=== PATIENT | female | born 1985 | race Caucasian/White ===

== ENCOUNTER 2021-10-10 20:53 | Emergency (ER) | payer MEDICAID ==
[~2021-10-10] VITALS: Ht 172.7 cm; Wt 79.4 kg
[2021-10-10 20:53] VITALS: BP 129/70
== END 2021-10-11 01:49 | disposition left against medical advice (07) ==
LOC: ER 20:53
DX: M25.571 Pain in right ankle and joints of right foot (principal); Z53.21 Procedure and treatment not carried out due to patient leaving prior to being seen by health care provider
CPT/HCPCS: 81025

== ENCOUNTER 2023-10-28 12:32 | Emergency (ER) | payer MEDICAID ==
[~2023-10-28] VITALS: Ht 170.2 cm; Wt 77.2 kg
[2023-10-28 13:40] VITALS: BP 138/88; PULSE 65; RESP 18; O2SAT 98
[2023-10-28 14:29] LABS: Basophils # (auto) 0.1 10 ^3/uL (0-0.2); Eosinophils # (auto) 0 10 ^3/uL (0-0.8); Hemoglobin 9.2 g/dL (12.2-16.2); Mean Corpuscular Hemoglobin 21.6 pg (28.0-32.0); White Blood Cell 7.9 10^3/uL (4.4-10.8)
[2023-10-28 14:31] LABS: Basophils % (auto) 1.4 % (0.0-2.0); Eosinophils % (auto) 0.5 % (0.0-7.0); Hematocrit 30.4 % (36.0-46.0); Lymphocytes # (auto) 2.8 10 ^3/uL (0.4-5.4); Lymphocytes % (auto) 35.9 % (10.0-50.0); Mean Corpuscular Hgb Conc. 30.2 g/dL (32.0-36.0); Mean Corpuscular Volume 71.6 fL (80.0-100.0); Monocytes # (auto) 0.7 10 ^3/uL (0-1.3); Monocytes % (auto) 8.4 % (0.0-12.0); Neutrophils # (auto) 4.3 10 ^3/uL (1.6-8.6); Neutrophils % (auto) 53.8 % (37.0-80.0); Nucleated Red Blood Cells % 0.1 %; Red Blood Cells 4.24 10^6/uL (4.0-5.20); Red Cell Distribution Width 19.3 % (11.8-14.3)
[2023-10-28] MEDS ORDERED: MECL25CH85 PO (14:32)
[2023-10-28 14:43] LABS: Chloride 108 mmol/L (98-107); Potassium 3.9 mmol/L (3.5-5.1); Sodium 138 mmol/L (136-145)
[2023-10-28 14:44] LABS: Anion Gap 4 (5-15); Calcium 8.7 mg/dL (8.5-10.1); Carbon Dioxide 26 mmol/L (20-30)
[2023-10-28 14:49] LABS: BUN/Creatinine Ratio 15.1 (10.0-20.0); Blood Urea Nitrogen 11 mg/dL (9-23); Glucose 88 mg/dL (74-106)
== END 2023-10-28 18:56 | disposition left against medical advice (07) ==
LOC: ER 12:32
DX: R42 Dizziness and giddiness (principal); F15.90 Other stimulant use, unspecified, uncomplicated; Z98.890 Other specified postprocedural states; Z87.891 Personal history of nicotine dependence; Z88.8 Allergy status to other drugs, medicaments and biological substances; Z79.899 Other long term (current) drug therapy
CPT/HCPCS: 36415; 70450; 70486; 80048; 85025

== ENCOUNTER 2024-09-07 06:30 | Inpatient (IN) | payer MEDICAID ==
[~2024-09-07] VITALS: Ht 170.2 cm; Wt 79.5 kg
[~2024-09-07 06:30] MED LIST: MECL25CH85 PO
--- NOTE | 2024-09-07 07:54 | ED.PDOC ---
History of Present Illness HPI Comments 39 year old female presents to the ED with chief complaint of ETOH withdrawals. Patient reports that she believes she is experiencing ETOH withdrawals as she had stopped drinking after a 2 day binge, last drink had was around 8pm last night. Patient relays that she has drank 1 pint of ETOH every day for the past year. Patient states she is experiencing sweats, clammy hands, tremors, anxiety, and nausea. Patient denies any vomiting, dizziness, headache, chest pain, SOB, or fever. 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 all OIL PAINT SHADER Hx Family History Family History: Family hx of DM, Family hx of Cancer Social History Smoker: Non-Smoker Alcohol: Heavy Drugs: Marijuana Lives In: Home Constitutional: reports: sweats; denies: chills, diaphoresis, fatigue, fever, malaise, weakness, others EENTM: denies: blurred vision, double vision, ear bleeding, ear discharge, ear drainage, ear pain, ear ringing, eye pain, eye redness, hearing loss, mouth pain, mouth swelling, nasal discharge, nose bleeding, nose congestion, nose pain, photophobia, tearing, throat pain, throat swelling, voice changes, others Respiratory: denies: cough, hemoptysis, orthopnea, SOB at rest, shortness of breath, SOB with excertion, stridor, wheezing, others Cardiovascular: denies: chest pain, dizzy spells, diaphoresis, Dyspnea on exertion, edema, irregular heart beat, left arm pain, lightheadedness, palpitations, PND, syncope, others Gastrointestinal: reports: nausea; denies: abdomen distended, abdominal pain, blood streaked bowels, constipated, diarrhea, dysphagia, difficulty swallowing, hematemesis, melena, poor appetite, poor fluid intake, rectal bleeding, rectal pain, vomiting, others Genitourinary: denies: abnormal vagina bleeding, burning, dyspareunia, dysuria, flank pain, frequency, hematuria, incontinence, pain, , vagina discharge, urgency, others Neurological: reports: tremors; denies: dizziness, fainting, headache, left sided numbness, left sided weakness, numbness, paresthesia, pre-existing deficit, right sided numbness, right sided weakness, seizure, speech problems, tingling, weakness, others Musculoskeletal: denies: back pain, gout, joint pain, joint swelling, muscle pain, muscle stiffness, neck pain, others Integumetry: denies: bruises, change in color, change in hair/nails, dryness, laceration, lesions, lumps, rash, wounds, others Allergic/Immunocompromised: denies: Difficulty Healing, Frequent Infections, Hives, Itching, others Hematologic/Lymphatic: denies: anemia, blood clots, easy bleeding, easy bruising, swollen glands, others Endocrine: denies: excessive hunger, excessive sweating, excessive thirst, excessive urination, flushing, intolerance to cold, intolerance to heat, unexplained weight gain, unexplained weight loss, others Psychiatric: reports: anxiety; denies: bipolar disorder, depression, hopeless, panic disorder, schizophrenia, sleepless, suicidal, others All Other Systems: Reviewed and Negative Physical Exam General Appearance: No Apparent Distress, Other (Anxious appearing) HEENT: Normal ENT Inspection, PERRL/EOMI Neck: Full Range of Motion, Non-Tender, Normal, Normal Inspection Respiratory: Chest Non-Tender, Lungs Clear, No Accessory Muscle Use, No Respiratory Distress, Normal Breath Sounds Cardiovascular: No Edema, No JVD, No Murmur, No Gallop, Normal Peripheral Pulses, Regular Rate/Rhythm Breast Exam: Deferred Gastrointestinal: No Organomegaly, Non Tender, No Pulsatile Mass, Normal Bowel Sounds, Soft Genitalia: Deferred Pelvic: Deferred Rectal: Deferred Extremities: No calf tenderness, Normal capillary refill, Normal inspection, Normal range of motion, Non-tender, No pedal edema Musculoskeletal : Apperance: Normal Neurologic: Alert, detail maker and fitter II-XII nml as Tested, No Motor Deficits, Normal Affect, Normal Mood, No Sensory Deficits Cerebellar Function: Normal Reflexes: Normal Skin: Dry, Normal Color, Warm Lymphatic: No Adenopathy Was a procedure done? Was a procedure done?: No Differential Dx Considerations may include: Alcohol withdrawal X-Ray, Labs, Meds, VS Vital Signs Date Time Temp Pulse Resp B/P (MAP) Pulse Ox O2 Delivery O2 Flow Rate FiO2 09/07/24 08:56 98.5 97 21 128/90 (103) 98 98.5 09/07/24 06:54 98.4 106 24 157/94 (115) 99 Lab Test 09/07/24 08:00 Range/Units White Blood Count 8.2 4.4-10.8 10^3/uL Red Blood Count 4.41 4.0-5.20 10^6/uL Hemoglobin 10.2 L 12.2-16.2 g/dL Hematocrit 33.4 L 36.0-46.0 % Mean Corpuscular Volume 75.8 L 80.0-100.0 fL Mean Corpuscular Hemoglobin 23.2 L 28.0-32.0 pg Mean Corpuscular Hemoglobin Concent 30.6 L 32.0-36.0 g/dL Red Cell Distribution Width 18.8 H 11.8-14.3 % Platelet Count 313 140-450 10^3/uL Mean Platelet Volume 8.3 6.9-10.8 fL Neutrophils (%) (Auto) 76.6 37.0-80.0 % Lymphocytes (%) (Auto) 14.5 10.0-50.0 % Monocytes (%) (Auto) 8.5 0.0-12.0 % Eosinophils (%) (Auto) 0.1 0.0-7.0 % Basophils (%) (Auto) 0.3 0.0-2.0 % Neutrophils # (Auto) 6.3 1.6-8.6 10 ^3/uL Lymphocytes # (Auto) 1.2 0.4-5.4 10 ^3/uL Monocytes # (Auto) 0.7 0-1.3 10 ^3/uL Eosinophils # (Auto) 0 0-0.8 10 ^3/uL Basophils # (Auto) 0 0-0.2 10 ^3/uL Nucleated Red Blood Cells 0.1 % Sodium Level 141 136-145 mmol/L Potassium Level 3.7 3.5-5.1 mmol/L Chloride Level 106 98-107 mmol/L Carbon Dioxide Level 25 20-31 mmol/L Anion Gap 10 5-15 Blood Urea Nitrogen 6 L 9-23 mg/dL Creatinine 0.55 0.550-1.02 mg/dL Glomerular Filtration Rate Calc 120 >90 mL/min BUN/Creatinine Ratio 10.9 10.0-20.0 Serum Glucose 119 H 74-106 mg/dL Calcium Level 9.7 8.7-10.4 mg/dL Plasma/Serum Blood Alcohol Pending Current Medications Medications (Trade) Dose Ordered Sig/Javed Route Start Time Stop Time Status Last Admin Sodium Chloride 1,000 ml @ 1,000 mls/hr Q1H ONCE IV 09/07/24 07:45 09/07/24 08:44 DC 09/07/24 09:38 Ondansetron HCl (Zofran) 4 mg ONCE ONCE IV 09/07/24 07:45 09/07/24 07:46 DC 09/07/24 09:38 Pantoprazole Sodium (Protonix) 40 mg ONCE ONCE IV 09/07/24 07:45 09/07/24 07:46 DC 09/07/24 09:38 Lorazepam (Ativan Inj) 2 mg ONCE ONCE IV 09/07/24 07:45 09/07/24 07:46 DC 09/07/24 09:38 Chlordiazepoxide HCl (Librium Capsule) 50 mg ONCE ONCE PO 09/07/24 07:45 09/07/24 07:46 DC 09/07/24 09:46 Time of 1ST Reevaluation: 08:50 Reevaluation 1ST: Improved Patient Education/Counseling: Diagnosis, Treatment Family Education/Counseling: No Family Present Additional Information I reviewed the following notes from patient's past medical encounters: 10/28/23 for vertigo The following tests were ordered, and results were reviewed by me: UA, Blood ETOH, CBC, BMP I reviewed and agreed with the following test results read by other providers: None Additional Information was gathered from interviewing the following independent historians: None I discussed treatment and results with medical personnel. Departure 1 Departure Time of Disposition: 09:52 (Patient with a acute alcohol withdrawal. We will treat patient and admit for further workup) Impression: Primary Impression: Acute hyperactive alcohol withdrawal delirium Disposition: ADMITTED INPATIENT Admit to: Tele Condition: Guarded Critical Care Note Critical Care Time?: Yes Critical care comment: Acute alcohol withdrawal Authorized and Performed by: Ronaldo Crews MD Total critical care time: Approximately 38 minutes Due to a high probability of clinically significant, life threatening deterioration, the patient required my highest level of preparedness to intervene emergently and I personally spent this critical care time directly and personally managing the patient. This critical care time included obtaining a history; examining the patient; pulse oximetry; ordering and review of studies; arranging urgent treatment with development of a management plan; evaluation of patient's response to treatment; frequent reassessment; and, discussions with other providers. This critical care time was performed to assess and manage the high probability of imminent, life-threatening deterioration that could result in multi-organ failure. It was exclusive of separately billable procedures and treating other patients and teaching time. Please see my other sections and the rest of the note for further information on patient assessment and treatment. Stability Stability form required: No Heart Score Heart Score: Heart Score Response (Comments) Value History N/A 0 EKG N/A 0 Age N/A 0 Risk Factors N/A 0 Troponin N/A 0 Total 0 I personally scribed for RONALDO CREWS MD ([email or web address]) on 09/07/24 at 07:54. Electronically submitted by Hermelindo Keller ([email or web address]). RONALDO CREWS MD Sep 07, 2024 07:54
[2024-09-07 08:59] LABS: Chloride 106 mmol/L (98-107); Potassium 3.7 mmol/L (3.5-5.1); Sodium 141 mmol/L (136-145)
[2024-09-07 09:00] LABS: Anion Gap 10 (5-15); Basophils # (auto) 0 10 ^3/uL (0-0.2); Calcium 9.7 mg/dL (8.7-10.4); Carbon Dioxide 25 mmol/L (20-31); Eosinophils # (auto) 0 10 ^3/uL (0-0.8); Eosinophils % (auto) 0.1 % (0.0-7.0); Nucleated Red Blood Cells % 0.1 %
[2024-09-07 09:02] LABS: Basophils % (auto) 0.3 % (0.0-2.0); Hematocrit 33.4 % (36.0-46.0); Hemoglobin 10.2 g/dL (12.2-16.2); Lymphocytes # (auto) 1.2 10 ^3/uL (0.4-5.4); Lymphocytes % (auto) 14.5 % (10.0-50.0); Mean Corpuscular Hemoglobin 23.2 pg (28.0-32.0); Mean Corpuscular Hgb Conc. 30.6 g/dL (32.0-36.0); Mean Corpuscular Volume 75.8 fL (80.0-100.0); Monocytes # (auto) 0.7 10 ^3/uL (0-1.3); Monocytes % (auto) 8.5 % (0.0-12.0); Neutrophils # (auto) 6.3 10 ^3/uL (1.6-8.6); Neutrophils % (auto) 76.6 % (37.0-80.0); Platelet Count (auto) 313 10^3/uL (140-450); Red Blood Cells 4.41 10^6/uL (4.0-5.20); Red Cell Distribution Width 18.8 % (11.8-14.3); White Blood Cell 8.2 10^3/uL (4.4-10.8)
[2024-09-07 09:05] LABS: BUN/Creatinine Ratio 10.9 (10.0-20.0)
[2024-09-07 09:34] LABS: Blood Urea Nitrogen 6 mg/dL (9-23); Glucose 119 mg/dL (74-106)
[2024-09-07] MEDS: ONDANSETRON HCL 4 MG/2 ML VIAL IV ONE (09:38)
[2024-09-07] MEDS: PANTOPRAZOLE 40 MG/10 ML VIAL INJ IV ONE (09:38)
[2024-09-07] MEDS: LORazepam 2MG/ML-1ML VIAL IV ONE (09:38)
[2024-09-07] MEDS: SODIUM CHLORIDE 0.9% 1,000 ML IV ONE (09:38)
[2024-09-07] MEDS: chlordiazePOXIDE HCL 25 MG CAP PO ONE (09:46)
[2024-09-07] MEDS ORDERED: NITROGLYCERIN 0.4 MG SL TAB SL PRN (11:00)
[2024-09-07] MEDS ORDERED: LORazepam 2MG/ML-1ML VIAL IV PRN (11:00)
[2024-09-07] MEDS ORDERED: DOCUSATE SOD 100 MG CAP PO PRN (11:00)
[2024-09-07] MEDS ORDERED: ACETAMINOPHEN 325 MG TAB PO PRN (11:00)
--- NOTE | 2024-09-07 11:05 | DVHHP2 ---
History of Present Illness Reason for Visit: ETOH Withdrawal History of Present Illness Darcy Walters is a 39-year-old female with no significant past medical history who comes in for ETOH withdrawal. Patient states that she has been drinking about 1 pint/day for the last year. She states she has been very stressed out due to loosing her job and her house recently and for the last 3 days she has been drinking a handle/day. Her last drink was last night about 1999. She is currently staying with her sister. She states she came to the hospital today because she started having withdrawal symptoms of diarrhea, tremors, headache, agitation, nausea, and vomiting, and that she wants to get sober. Past Surgical History: (x 1) Smoke: 1 pack per day (vapes) ALCOHOL: heavy Drugs: None Lives: with Family Domestic Violence: Neg Review of Systems Constitutional: No: Fever, Chills, Sweats, Weakness, Malaise, Other Eyes: No: Pain, Vision change, Conjunctivae inflammation, Eyelid inflammation, Other, Redness ENT: No: Ear pain, Ear discharge, Nose pain, Nose discharge, Nose congestion, Mouth pain, Mouth swelling, Throat pain, Throat swelling, Other Respiratory: No: Cough, Dry, Shortness of breath, SOB with excertion, Wheezing, Hemoptysis, Pleuritic Pain, Sputum, Wheezing, Other Cardiovascular: No: Chest Pain, Palpitations, Orthopnea, Paroxysmal Noc. Dyspnea, Edema, Lt Headedness, Other Gastrointestinal: Nausea, Vomiting, Diarrhea; No: Abdominal Pain, Constipation, Melena, Hematochezia, Other Genitourinary: No Dysuria, No Frequency, No Incontinence, No Hematuria, No Retention, No Other Musculoskeletal: No: other, neck pain, shoulder pain, arm pain, back pain, hand pain, leg pain, foot pain Skin: No: Rash, Lesions, Jaundice, Bruising, Other Neurological: Incoordination, Other (tremors); No: Weakness, Numbness, Change in speech, Confusion, Seizures Allergies: Coded Allergies: Codeine (Verified Allergy, Unknown, 10/10/21) NSAIDs (Verified Allergy, Unknown, 10/10/21) Exam Vital Signs Vital Signs Date Time Temp Pulse Resp B/P (MAP) Pulse Ox O2 Delivery O2 Flow Rate FiO2 09/07/24 10:56 97.8 96 20 123/71 (88) 98 97.8 General Appearance: Alert, Oriented X3, Cooperative, moderate distress HEENT: Atraumatic, PERRLA Respiratory: Clear to auscultation, Normal air movement Cardiovascular: Normal S1, Normal S2, Other (tachycardia) Abdominal: Normal bowel sounds, Soft, No tenderness, Other (nausea) Extremities: No clubbing, No cyanosis, No edema, Normal pulses Skin: No rashes, No breakdown, No significant lesion Neuro: Strength at 5/5 X4 ext, Normal tone Psych/Mental Status: Other (anxious, irritable) Labs/Xrays Labs Test 09/07/24 08:00 Range/Units White Blood Count 8.2 4.4-10.8 10^3/uL Red Blood Count 4.41 4.0-5.20 10^6/uL Hemoglobin 10.2 L 12.2-16.2 g/dL Hematocrit 33.4 L 36.0-46.0 % Mean Corpuscular Volume 75.8 L 80.0-100.0 fL Mean Corpuscular Hemoglobin 23.2 L 28.0-32.0 pg Mean Corpuscular Hemoglobin Concent 30.6 L 32.0-36.0 g/dL Red Cell Distribution Width 18.8 H 11.8-14.3 % Platelet Count 313 140-450 10^3/uL Mean Platelet Volume 8.3 6.9-10.8 fL Neutrophils (%) (Auto) 76.6 37.0-80.0 % Lymphocytes (%) (Auto) 14.5 10.0-50.0 % Monocytes (%) (Auto) 8.5 0.0-12.0 % Eosinophils (%) (Auto) 0.1 0.0-7.0 % Basophils (%) (Auto) 0.3 0.0-2.0 % Neutrophils # (Auto) 6.3 1.6-8.6 10 ^3/uL Lymphocytes # (Auto) 1.2 0.4-5.4 10 ^3/uL Monocytes # (Auto) 0.7 0-1.3 10 ^3/uL Eosinophils # (Auto) 0 0-0.8 10 ^3/uL Basophils # (Auto) 0 0-0.2 10 ^3/uL Nucleated Red Blood Cells 0.1 % Sodium Level 141 136-145 mmol/L Potassium Level 3.7 3.5-5.1 mmol/L Chloride Level 106 98-107 mmol/L Carbon Dioxide Level 25 20-31 mmol/L Anion Gap 10 5-15 Blood Urea Nitrogen 6 L 9-23 mg/dL Creatinine 0.55 0.550-1.02 mg/dL Glomerular Filtration Rate Calc 120 >90 mL/min BUN/Creatinine Ratio 10.9 10.0-20.0 Serum Glucose 119 H 74-106 mg/dL Calcium Level 9.7 8.7-10.4 mg/dL INDICATION: ETOH FINDINGS: The liver demonstrates homogenous echotexture without focal mass lesions. The liver measures 17 cm. There is no intrahepatic or extrahepatic ductal dilatation. The common duct measures 3 mm. The gallbladder is without evidence of stone or sludge. The gallbladder wall measures 1 mm and is within normal limits. The right kidney measures 9.1 cm. The right kidney is normal in contour, size, and shape. The echogenicity is normal. There is no hydronephrosis. The pancreas is not well visualized due to overlying bowel gas. IMPRESSION: No sonographic evidence of gallstones or acute cholecystitis. Assessment/Plan Assessment/Plan Assessment: ETOH Withdrawal, Plan: Admit to [facility], CIWA protocol, Librium, IV hydration, Daily supplements, Liver ultrasound, CMP, Social service consult, Plan discussed with: Patient My Orders Orders - ALYSSA ESPINOZA Procedure Category Date Status Time Admit ADMIT 09/07/24 Verified 11:00 Code Status CODE 09/07/24 Verified 11:00 Hydrocodone-Acet PHA 09/07/24 Verified 5/325mg Tab ([place] 11:00 Ondansetron Hcl PHA 09/07/24 Verified (Zofran) 11:00 Docusate Sodium PHA 09/07/24 Verified Capsule ([place]ace 11:00 Complete Blood Count LAB 09/08/24 Verified 04:00 Comprehensive LAB 09/08/24 Verified Metabolic Panel 04:00 Condition: Critical [facility] 09/07/24 Verified 11:00 Acetaminophen Tablet PHA 09/07/24 Verified (Tylenol Tablet) 11:00 Nitroglycerin PHA 09/07/24 Verified Sublingual (Ntrostat 11:00 Morphine Sulfate PHA 09/07/24 Verified Injection 11:00 Stat Ekg For Chest [facility] 09/07/24 Verified Pain 11:00 Notify Md Of Changes [facility] 09/07/24 Verified From Base 11:00 Architectural Designer For [facility] 09/07/24 Verified 24 Hours 11:00 Emergency Dysrhythmia [facility] 09/07/24 Verified Protocol 11:00 Rhythm Strips Once [facility] 09/07/24 Verified Every Shift 11:00 Oxygen By Nasal RT 09/07/24 Verified Cannula 11:00 Drug Screen LAB 09/07/24 Verified 11:00 0.9% Nacl 1 Liter [facility] 09/07/24 Verified Bolus 11:00 Magnesium LAB 09/07/24 Verified 11:00 Thiamine 100mg Po PHA 09/08/24 Verified Daily 10:00 Folic Acid 1mg Po PHA 09/08/24 Verified Daily 10:00 Mvi Tablet Po Daily PH[facility] 09/08/24 Verified 10:00 Thiamine 100mg Po Now PHA 09/07/24 Verified 11:00 Mvi 1 Tablet Po Now PHA 09/07/24 Verified 11:00 Ativan 2mg Iv Q15min PHA 09/07/24 Verified 11:00 Ativan 2mg Iv Q2hr Atc PHA 09/07/24 Verified 11:00 Etoh Withdrawal [facility] 09/07/24 Verified Assessment 11:00 Etoh Withdrawal [facility] 09/07/24 Verified Assessment 11:00 Date of Service: Sep 07, 2024 Billing Provider: ALYSSA ESPINOZA Common Visit Codes: [id number] INP/OBS CARE (HIGH) ALYSSA ESPINOZA Sep 07, 2024 11:05
[2024-09-07] MEDS: chlordiazePOXIDE HCL 25 MG CAP PO SCH (11:45)
[2024-09-07 12:00] VITALS: PULSE 88; RESP 15; O2SAT 99
[2024-09-07] MEDS: SODIUM CHLORIDE 0.9% 1,000 ML IVB ONE (12:02)
[2024-09-07] MEDS: LORazepam 2MG/ML-1ML VIAL IV SCH (12:02)
[2024-09-07] MEDS: THIAMINE HCL 100 MG TAB PO ONE (12:02)
[2024-09-07] MEDS: MULTIPLE VITAMIN TAB PO ONE (12:02)
[2024-09-07] MEDS: HYDROcodone-ACET 5/325MG TAB PO PRN (12:07)
--- NOTE | 2024-09-07 13:04 | DVH ---
INDICATION: ETOH TECHNIQUE: Multiple real-time sonographic images were obtained of the right upper quadrant. COMPARISON: None FINDINGS: The liver demonstrates homogenous echotexture without focal mass lesions. The liver measure s 17 cm. There is no intrahepatic or extrahepatic ductal dilatation. The common duct measures 3 mm . The gallbladder is without evidence of stone or sludge. The gallbladder wall measures 1 mm and is w ithin normal limits. The right kidney measures 9.1 cm. The right kidney is normal in contour, size, and shape. The echo genicity is normal. There is no hydronephrosis. The pancreas is not well visualized due to overlying bowel gas. IMPRESSION: No sonographic evidence of gallstones or acute cholecystitis.
[2024-09-07 14:01] LABS: Albumin 4.5 g/dL (3.2-4.8); Bilirubin, Total 1.1 mg/dL (0.2-1.0); Total Protein 7.3 g/dL (5.7-8.2)
[2024-09-07] MEDS: MORPHINE SULFATE INJ 2 MG/ml SYRG IV PRN (14:15)
[2024-09-07] MEDS: ONDANSETRON HCL 4 MG/2 ML VIAL IV PRN (14:22)
[2024-09-07] MEDS ORDERED: METOCLOPRAMIDE HCL 5MG/ml INJ 2ml VIAL IV PRN (17:00)
[2024-09-07 20:31] LABS: Urine Bacteria MOD /hpf (None Seen); Urine Blood Negative /uL (Negative); Urine Clarity Clear (Clear); Urine Color Yellow (Yellow); Urine Mucus FEW (None Seen); Urine Protein, UAD Negative (Negative); Urine Squamous Epithelial Cell FEW /hpf (<5); Urine Urobilinogen Normal (Negative); Urine WBC 3 /HPF (0-5); Urine pH 5.5 (5.0-9.0)
[2024-09-08 07:15] LABS: Alanine Aminotransferase 11 U/L (7-40); Anion Gap 10 (5-15); Aspartate Aminotransferase 15 U/L (13-40); Calcium 8.9 mg/dL (8.7-10.4); Carbon Dioxide 24 mmol/L (20-31); Glucose 88 mg/dL (74-106); Sodium 142 mmol/L (136-145)
[2024-09-08 07:16] LABS: Albumin 3.8 g/dL (3.2-4.8); Bilirubin, Total 0.6 mg/dL (0.2-1.0); Total Protein 6.2 g/dL (5.7-8.2)
[2024-09-08 07:22] LABS: Basophils # (auto) 0 10 ^3/uL (0-0.2); Hemoglobin 9.4 g/dL (12.2-16.2); Lymphocytes # (auto) 2.2 10 ^3/uL (0.4-5.4); Monocytes # (auto) 0.5 10 ^3/uL (0-1.3); White Blood Cell 5.4 10^3/uL (4.4-10.8)
[2024-09-08 07:24] LABS: Basophils % (auto) 0.6 % (0.0-2.0); Eosinophils # (auto) 0 10 ^3/uL (0-0.8); Eosinophils % (auto) 0.8 % (0.0-7.0); Hematocrit 30.6 % (36.0-46.0); Lymphocytes % (auto) 41.2 % (10.0-50.0); Mean Corpuscular Hemoglobin 23.5 pg (28.0-32.0); Mean Corpuscular Hgb Conc. 30.6 g/dL (32.0-36.0); Mean Corpuscular Volume 76.9 fL (80.0-100.0); Monocytes % (auto) 9.2 % (0.0-12.0); Neutrophils # (auto) 2.6 10 ^3/uL (1.6-8.6); Neutrophils % (auto) 48.2 % (37.0-80.0); Nucleated Red Blood Cells % 0.1 %; Platelet Count (auto) 235 10^3/uL (140-450); Red Blood Cells 3.98 10^6/uL (4.0-5.20); Red Cell Distribution Width 19.1 % (11.8-14.3)
[2024-09-08 07:27] LABS: Alkaline Phosphatase 45 U/L (46-116); BUN/Creatinine Ratio 8.6 (10.0-20.0); Blood Urea Nitrogen < 5 mg/dL (9-23); Chloride 108 mmol/L (98-107); Potassium 2.9 mmol/L (3.5-5.1)
[2024-09-08 07:50] VITALS: PULSE 74; RESP 12; O2SAT 100
[2024-09-08 09:10] VITALS: BP 115/65; PULSE 78; RESP 17; TEMP 98; O2SAT 98
[2024-09-08] MEDS: MULTIPLE VITAMIN TAB PO SCH (09:30)
[2024-09-08] MEDS: FOLIC ACID 1 MG TAB PO SCH (09:30)
[2024-09-08] MEDS: THIAMINE HCL 100 MG TAB PO SCH (09:30)
[2024-09-08] MEDS: chlordiazePOXIDE HCL 25 MG CAP PO SCH (10:23)
--- NOTE | 2024-09-08 12:47 | DVHDS2 ---
Discharge Summary Date of Admission Sep 07, 2024 at 11:00 Date of Discharge: Sep 08, 2024 Labs/Diagnostic Data: Laboratory Results Test 09/08/24 06:03 09/07/24 20:23 09/07/24 08:00 White Blood Count 5.4 10^3/uL (4.4-10.8) Red Blood Count 3.98 10^6/uL (4.0-5.20) Hemoglobin 9.4 g/dL (12.2-16.2) Hematocrit 30.6 % (36.0-46.0) Mean Corpuscular Volume 76.9 fL (80.0-100.0) Mean Corpuscular Hemoglobin 23.5 pg (28.0-32.0) Mean Corpuscular Hemoglobin Concent 30.6 g/dL (32.0-36.0) Red Cell Distribution Width 19.1 % (11.8-14.3) Platelet Count 235 10^3/uL (140-450) Mean Platelet Volume 8.4 fL (6.9-10.8) Neutrophils (%) (Auto) 48.2 % (37.0-80.0) Lymphocytes (%) (Auto) 41.2 % (10.0-50.0) Monocytes (%) (Auto) 9.2 % (0.0-12.0) Eosinophils (%) (Auto) 0.8 % (0.0-7.0) Basophils (%) (Auto) 0.6 % (0.0-2.0) Neutrophils # (Auto) 2.6 10 ^3/uL (1.6-8.6) Lymphocytes # (Auto) 2.2 10 ^3/uL (0.4-5.4) Monocytes # (Auto) 0.5 10 ^3/uL (0-1.3) Eosinophils # (Auto) 0 10 ^3/uL (0-0.8) Basophils # (Auto) 0 10 ^3/uL (0-0.2) Nucleated Red Blood Cells 0.1 % Sodium Level 142 mmol/L (136-145) Potassium Level 2.9 mmol/L (3.5-5.1) Chloride Level 108 mmol/L (98-107) Carbon Dioxide Level 24 mmol/L (20-31) Anion Gap 10 (5-15) Blood Urea Nitrogen < 5 mg/dL (9-23) Creatinine 0.58 mg/dL (0.550-1.02) Glomerular Filtration Rate Calc 118 mL/min (>90) BUN/Creatinine Ratio 8.6 (10.0-20.0) Serum Glucose 88 mg/dL (74-106) Calcium Level 8.9 mg/dL (8.7-10.4) Total Bilirubin 0.6 mg/dL (0.2-1.0) Aspartate Amino Transferase (AST) 15 U/L (13-40) Alanine Aminotransferase (ALT) 11 U/L (7-40) Alkaline Phosphatase 45 U/L (46-116) Total Protein 6.2 g/dL (5.7-8.2) Albumin 3.8 g/dL (3.2-4.8) Urine Color Yellow (Yellow) Urine Clarity Clear (Clear) Urine pH 5.5 (5.0-9.0) Urine Specific [place] 1.020 (1.001-1.035) Urine Protein Negative (Negative) Urine Ketones 1+ (Negative) Urine Blood Negative /uL (Negative) Urine Nitrite 2+ (Negative) Urine Bilirubin Negative (Negative) Urine Urobilinogen Normal mg/dL (Negative) Urine Leukocyte Esterase Negative /uL (Negative) Urine RBC 2 /hpf (0 - 4) Urine Microscopic WBC 3 /HPF (0-5) Urine Squamous Epithelial Cells Few /hpf (<5) Urine Bacteria Mod /hpf (None Seen) Urine Mucus Few (None Seen) Urine Glucose Normal mg/dL (Normal) Magnesium Level 1.8 mg/dL (1.6-2.6) Other Laboratory Tests 09/08/24 06:03 Brief Hx & Hospital Course: Darcy Walters is a 39-year-old female with no significant past medical history who comes in for ETOH withdrawal. Patient states that she has been drinking about 1 pint/day for the last year. She states she has been very stressed out due to loosing her job and her house recently and for the last 3 days she has been drinking a handle/day. Her last drink was last night about 1999. She is currently staying with her sister. She states she came to the hospital today because she started having withdrawal symptoms of diarrhea, tremors, headache, agitation, nausea, and vomiting, and that she wants to get sober. ETOH Withdrawal acute metabolic encephalopathy alcohol withdrawal symptoms Plan: Admit to [facility], CIWA protocol, Librium, IV hydration, Daily supplements, Liver ultrasound, CMP, Social service consult, shortly after being admitted, pt left AMA from ER while awaiting for a bed and receiving treatment Condition at Discharge: Good Final Diagnosis/Problems List see above Discharge Disposition: AMA Discharge Statement: "Patient was advised to return to the ER or call 911 if any headaches, dizziness, shortness of breath, chest pain, abdominal pain, bleeding, fevers, or worsening of medical condition. Patient was counseled about treatment plan, medications, possible side effects, patientverbalized understanding. All questions were answered to the best of my ability. This discharge took greater then 30 minutes in planning, reviewing documentation, counseling the patient, and discussing with other team members." ASSESSMENT ASSESSMENT Assessment Date of Service: Sep 08, 2024 Billing Provider: OANH DIALLO DO Common Visit Codes: 22342-KKM/OBS DISCH DAY >30min OANH DIALLO DO Sep 08, 2024 12:47
[2024-09-08 12:54] LABS: Blood Alcohol < 3.0 mg/dL (<10)
[2024-09-08 13:29] LABS: Cannabinoid Screen, Urine Neg (NEGATIVE)
[2024-09-08 13:37] LABS: Bilirubin, Direct 0.4 mg/dL (<0.3)
[2024-09-08 13:37] LABS: Amphetamine Screen, Urine Neg (NEGATIVE); Barbiturate Scree,Urine Neg (NEGATIVE); Benzodiazephine Screen, Urine Pos (NEGATIVE); Cocaine Screen, Urine Neg (NEGATIVE); Opiate Scree,Urine Pos (NEGATIVE); Phencyclidine Screen, Urine Neg (NEGATIVE)
[2024-09-09] MEDS ORDERED: chlordiazePOXIDE HCL 25 MG CAP PO SCH (10:00)
[2024-09-10] MEDS ORDERED: chlordiazePOXIDE HCL 25 MG CAP PO SCH (07:00)
== END 2024-09-08 10:30 | disposition left against medical advice (07) | DRG 52 ==
LOC: ER 06:30 → TELE 11:00 → OVERFLOW 16:04
PROVIDERS: ADMIT Nurse Practitioner Family; ATTEND Internal Medicine
DX: G93.41 Metabolic encephalopathy (principal); F10.139 Alcohol abuse with withdrawal, unspecified; F41.9 Anxiety disorder, unspecified; Z53.29 Procedure and treatment not carried out because of patient's decision for other reasons; Y90.9 Presence of alcohol in blood, level not specified; Z88.5 Allergy status to narcotic agent; Z79.899 Other long term (current) drug therapy; Z83.3 Family history of diabetes mellitus; Z87.891 Personal history of nicotine dependence
CPT/HCPCS: 36415; 76705; 80048; 80053; 80076; 80307; 80320; 81001; 83735; 85025; 96361; 96374; 96375; 99291; G0378; J2405; J2470

== ENCOUNTER 2024-09-11 07:07 | Inpatient (IN) | payer MEDICAID ==
[~2024-09-11] VITALS: Ht 170.2 cm; Wt 79.6 kg
[2024-09-11] MEDS: SODIUM CHLORIDE 0.9% 1,000 ML IVB ONE (08:32)
--- NOTE | 2024-09-11 08:35 | ED.PDOC ---
Psychiatric HPI Comments 39F presents to the ER w/ prior Hx of anxiety which may be associated to the c/c of ETOH Withdrawal. Pt reports that she drinks 1 pint of Vodka a day and stopped "hours ago". Pt notes that she came into the ER Friday and left due from issues at home. Pt does have N/V as well as the chills. SHx of . Social Hx of Heavy Alcohol use, but denies tobacco and substance use. Denies fever, /D, SOB, CP or other associated symptom's, modifiers, or recent injuries or sick contact at this time. Chief Complaint: Withdrawal Time Seen by MD: 08:20 Primary Care Provider: none Reviewed Notes: Nurses Notes, Medications, Allergies Information Source: Patient Mode of Arrival: Ambulatory Severity: Able to Care for Self Severity of Pain: Moderate Severity of Mental Status: Mild Severity of Symptoms: Moderate Timing: Hours Duration: Since onset, Hours Prehospital treatment: None Presents with: Anxiety Ingestion: None Circumstance: Withdrawal Symptoms Current substance abuse: ETOH Stressors: None History of: ETOH Withdrawl Quality: None Associated signs and symptoms: Anxiety, ETOH Past Medical History PAST MEDICAL HISTORY: Anxiety 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 Hx Family History Family History: Reviewed,noncontributory to illness, Unknown Social History Smoker: Non-Smoker Alcohol: Heavy Drugs: Denies Drug Use Lives In: Home Constitutional: denies: chills, diaphoresis, fatigue, fever, malaise, sweats, weakness, others EENTM: denies: blurred vision, double vision, ear bleeding, ear discharge, ear drainage, ear pain, ear ringing, eye pain, eye redness, hearing loss, mouth pain, mouth swelling, nasal discharge, nose bleeding, nose congestion, nose pain, photophobia, tearing, throat pain, throat swelling, voice changes, others Respiratory: denies: cough, hemoptysis, orthopnea, SOB at rest, shortness of breath, SOB with excertion, stridor, wheezing, others Cardiovascular: denies: chest pain, dizzy spells, diaphoresis, Dyspnea on exertion, edema, irregular heart beat, left arm pain, lightheadedness, palpitations, PND, syncope, others Gastrointestinal: denies: abdomen distended, abdominal pain, blood streaked bowels, constipated, diarrhea, dysphagia, difficulty swallowing, hematemesis, melena, nausea, poor appetite, poor fluid intake, rectal bleeding, rectal pain, vomiting, others Genitourinary: denies: abnormal vagina bleeding, burning, dyspareunia, dysuria, flank pain, frequency, hematuria, incontinence, pain, , vagina discharge, urgency, others Neurological: denies: dizziness, fainting, headache, left sided numbness, left sided weakness, numbness, paresthesia, pre-existing deficit, right sided numbness, right sided weakness, seizure, speech problems, tingling, tremors, weakness, others Musculoskeletal: denies: back pain, gout, joint pain, joint swelling, muscle pain, muscle stiffness, neck pain, others Integumetry: denies: bruises, change in color, change in hair/nails, dryness, laceration, lesions, lumps, rash, wounds, others Allergic/Immunocompromised: denies: Difficulty Healing, Frequent Infections, Hives, Itching, others Hematologic/Lymphatic: denies: anemia, blood clots, easy bleeding, easy bruising, swollen glands, others Endocrine: denies: excessive hunger, excessive sweating, excessive thirst, excessive urination, flushing, intolerance to cold, intolerance to heat, unexplained weight gain, unexplained weight loss, others Psychiatric: reports: others (ETOh Withdrawal); denies: anxiety, bipolar disorder, depression, hopeless, panic disorder, schizophrenia, sleepless, suic idal All Other Systems: Reviewed and Negative Physical Exam General Appearance: Moderate Distress, Normal, Other (restless) HEENT: Normal ENT Inspection, PERRL/EOMI, Pharynx Normal, TMs Normal Neck: Full Range of Motion, Non-Tender, Normal, Normal Inspection Respiratory: Chest Non-Tender, Lungs Clear, No Accessory Muscle Use, No Respiratory Distress, Normal Breath Sounds Cardiovascular: No Edema, No JVD, No Murmur, No Gallop, Normal Peripheral Pulses, Regular Rate/Rhythm Breast Exam: Deferred Gastrointestinal: No Organomegaly, Non Tender, No Pulsatile Mass, Normal Bowel Sounds, Soft Genitalia: Deferred Pelvic: Deferred Rectal: Deferred Extremities: No calf tenderness, Normal capillary refill, Normal inspection, Normal range of motion, Non-tender, No pedal edema Musculoskeletal : Apperance: Normal 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 Was a procedure done?: No Psych Differential Dx Psych. Differential Dx: Anxiety, Depression OD Differential Dx: Alcohol Abuse, Anxiety, Depression Suicidal Differential Dx: Alcohol Abuse, Anxiety Intoxication Differential Dx: Alcohol Withdraw Syndrome, Dehydration, De pression, Electrolyte Imbalance, Intoxication, Thiamine Deficiency X-Ray, Labs, Meds, VS Vital Signs Date Time Temp Pulse Resp B/P (MAP) Pulse Ox O2 Delivery O2 Flow Rate FiO2 09/11/24 13:30 86 22 102/65 (77) 98 09/11/24 11:30 86 18 124/87 (99) 98 09/11/24 10:35 85 13 99 Room Air* 0 21 09/11/24 10:35 98.1 85 13 99 98.1 09/11/24 09:20 120 16 97 Room Air* 0 21 09/11/24 08:03 119 20 99 Room Air 09/11/24 08:03 97.6 119 20 168/112 (130) 99 97.6 09/11/24 07:23 98.2 112 18 159/102 (121) 99 Lab Test 09/11/24 08:52 Range/Units White Blood Count 6.2 4.4-10.8 10^3/uL Red Blood Count 4.12 4.0-5.20 10^6/uL Hemoglobin 9.7 L 12.2-16.2 g/dL Hematocrit 31.6 L 36.0-46.0 % Mean Corpuscular Volume 76.8 L 80.0-100.0 fL Mean Corpuscular Hemoglobin 23.6 L 28.0-32.0 pg Mean Corpuscular Hemoglobin Concent 30.7 L 32.0-36.0 g/dL Red Cell Distribution Width 19.0 H 11.8-14.3 % Platelet Count 277 140-450 10^3/uL Mean Platelet Volume 7.8 6.9-10.8 fL Neutrophils (%) (Auto) 79.4 37.0-80.0 % Lymphocytes (%) (Auto) 12.2 10.0-50.0 % Monocytes (%) (Auto) 7.5 0.0-12.0 % Eosinophils (%) (Auto) 0.7 0.0-7.0 % Basophils (%) (Auto) 0.2 0.0-2.0 % Neutrophils # (Auto) 4.9 1.6-8.6 10 ^3/uL Lymphocytes # (Auto) 0.8 0.4-5.4 10 ^3/uL Monocytes # (Auto) 0.5 0-1.3 10 ^3/uL Eosinophils # (Auto) 0 0-0.8 10 ^3/uL Basophils # (Auto) 0 0-0.2 10 ^3/uL Nucleated Red Blood Cells 0.0 % Sodium Level 143 136-145 mmol/L Potassium Level 3.3 L 3.5-5.1 mmol/L Chloride Level 110 H 98-107 mmol/L Carbon Dioxide Level 25 20-31 mmol/L Anion Gap 8 5-15 Blood Urea Nitrogen 9 9-23 mg/dL Creatinine 0.62 0.550-1.02 mg/dL Glomerular Filtration Rate Calc 116 >90 mL/min BUN/Creatinine Ratio 14.5 10.0-20.0 Serum Glucose 98 74-106 mg/dL Calcium Level 8.9 8.7-10.4 mg/dL Magnesium Level 1.9 1.6-2.6 mg/dL Total Bilirubin 0.5 0.2-1.0 mg/dL Aspartate Amino Transferase (AST) 18 13-40 U/L Alanine Aminotransferase (ALT) 14 7-40 U/L Alkaline Phosphatase 43 L 46-116 U/L Total Protein 6.5 5.7-8.2 g/dL Albumin 4.0 3.2-4.8 g/dL Lipase 40 12-53 U/L Plasma/Serum Blood Alcohol < 3.0 <10 mg/dL Current Medications Medications (Trade) Dose Ordered Sig/Javed Route Start Time Stop Time Status Last Admin Lorazepam (Ativan Inj) 2 mg ONCE ONCE IV 09/11/24 08:30 09/11/24 08:31 DC 09/11/24 08:38 Sodium Chloride 1,000 ml @ 1,000 mls/hr Q1H ONCE IVB 09/11/24 08:30 09/11/24 09:29 DC 09/11/24 08:32 Folic Acid 1 mg/ Magnesium Sulfate 8 meq/ Multivitamins 10 ml/Thiamine HCl 100 mg/Sodium Chloride 1,013.2 ml @ 126.247 mls/hr DAILY@1800 INJ 09/11/24 10:00 09/11/24 12:20 DC 09/11/24 10:14 Folic Acid 1 mg/ Magnesium Sulfate 8 meq/ Multivitamins 10 ml/Thiamine HCl 100 mg/Sodium Chloride 1,013.2 ml @ 250 mls/ hr DAILY ONCE INJ 09/11/24 10:00 09/11/24 14:03 DC 09/11/24 10:20 Potassium Bicarbonate (Klor-Con/Ef) 50 meq ONCE ONCE PO 09/11/24 12:30 09/11/24 12:31 DC 09/11/24 13:26 Lorazepam (Ativan Inj) 2 mg ONCE ONCE IV 09/11/24 15:00 09/11/24 15:01 DC 09/11/24 15:05 Ondansetron HCl (Zofran) 4 mg ONCE ONCE IV 09/11/24 15:00 09/11/24 15:01 DC 09/11/24 15:05 Pantoprazole Sodium (Protonix Tablet) 40 mg ONCE ONCE PO 09/11/24 16:00 09/11/24 16:01 DC 09/11/24 18:07 Al Hydrox/Mg Hydrox/Simethicone (Maalox Plus) 30 ml ONCE ONCE PO 09/11/24 16:00 09/11/24 16:01 DC 09/11/24 18:07 Belladonna Alkaloids/ Phenobarbital ( Elixir) 5 ml ONCE ONCE PO 09/11/24 16:00 09/11/24 16:01 DC 09/11/24 18:08 Lidocaine HCl (Xylocaine 2% Viscous) 15 ml ONCE ONCE PO 09/11/24 16:00 09/11/24 16:01 DC 09/11/24 18:07 X-Ray, Labs, Meds, VS Comment Course in the emergency department eventful came in because she has abusing alcohol and came past surgical she has a gastric bypass and a blood pressure is 150/102 The chest x-ray is normal CBC 6200 with 79% neutrophils H&H 9.1 and 32 with microcytosis Blood alcohol less than 3.0 Magnesium 1.9 CMP normal except potassium of 3.0 Patient received potassium supplement banana bag and hydration Patient will be discharged when she feels better DR ROMAN TO FOLLOW Time of 1ST Reevaluation: 08:50 Reevaluation 1ST: Unchanged Time of 2ND Reevaluation: 18:18 Reevaluation 2ND: Improved Consultation: PCP Patient Education/Counseling: Diagnosis, Treatment, Prognosis, Need For Follow Up Family Education/Counseling: Diagnosis, Treatment, Prognosis, Need For Follow Up, No Family Present Assigned to Dr. DR ROMAN Change of Shift?: Yes Departure 1 Departure Time of Disposition: 18:15 Impression: Primary Impression: Alcohol abuse Additional Impressions: Alcohol withdrawal syndrome Qualified Codes: F10.930 - Alcohol use, unspecified with withdrawal, uncomplicated Hypokalemia Disposition: 30 STILL A PATIENT Condition: Fair Critical Care Note Critical Care Time?: No Stability Stability form required: No Heart Score Heart Score: Heart Score Response (Comments) Value History N/A 0 EKG N/A 0 Age <45 0 Risk Factors No known risk factors 0 Troponin N/A 0 Total 0 I personally scribed for MARQUEZ COFFEY MD ([email or web address]) on 09/11/24 at 08:35. Electronically submitted by Manuel Alexander ([email or web address]). MARQUEZ COFFEY MD Sep 11, 2024 08:35
[2024-09-11] MEDS: LORazepam 2MG/ML-1ML VIAL IV ONE ×3 (08:38→20:29)
--- NOTE | 2024-09-11 08:47 | DVH ---
CHEST RADIOGRAPH Indication: Alcohol abuse and withdrawal Technique: Frontal and lateral view of the chest was obtained Comparison: None FINDINGS: Lines and Tubes: None Lungs: Clear Pleura: No effusion. No pneumothorax. Cardiomediastinal contours: Unremarkable Bones: Unremarkable IMPRESSION: No evidence of acute disease.
[2024-09-11 09:05] LABS: Basophils # (auto) 0 10 ^3/uL (0-0.2); Basophils % (auto) 0.2 % (0.0-2.0); Eosinophils # (auto) 0 10 ^3/uL (0-0.8); Lymphocytes # (auto) 0.8 10 ^3/uL (0.4-5.4); Mean Corpuscular Volume 76.8 fL (80.0-100.0); White Blood Cell 6.2 10^3/uL (4.4-10.8)
[2024-09-11 09:06] LABS: Eosinophils % (auto) 0.7 % (0.0-7.0); Hematocrit 31.6 % (36.0-46.0); Hemoglobin 9.7 g/dL (12.2-16.2); Lymphocytes % (auto) 12.2 % (10.0-50.0); Mean Corpuscular Hemoglobin 23.6 pg (28.0-32.0); Mean Corpuscular Hgb Conc. 30.7 g/dL (32.0-36.0); Monocytes # (auto) 0.5 10 ^3/uL (0-1.3); Monocytes % (auto) 7.5 % (0.0-12.0); Neutrophils # (auto) 4.9 10 ^3/uL (1.6-8.6); Neutrophils % (auto) 79.4 % (37.0-80.0); Platelet Count (auto) 277 10^3/uL (140-450); Red Blood Cells 4.12 10^6/uL (4.0-5.20)
[2024-09-11 09:20] VITALS: PULSE 120; RESP 16; O2SAT 97
[2024-09-11 09:34] LABS: Alanine Aminotransferase 14 U/L (7-40); Anion Gap 8 (5-15); Aspartate Aminotransferase 18 U/L (13-40); BUN/Creatinine Ratio 14.5 (10.0-20.0); Bilirubin, Total 0.5 mg/dL (0.2-1.0); Calcium 8.9 mg/dL (8.7-10.4); Carbon Dioxide 25 mmol/L (20-31); Glucose 98 mg/dL (74-106); Magnesium 1.9 mg/dL (1.6-2.6); Sodium 143 mmol/L (136-145); Total Protein 6.5 g/dL (5.7-8.2)
[2024-09-11 09:38] LABS: Alkaline Phosphatase 43 U/L (46-116); Blood Alcohol < 3.0 mg/dL (<10); Blood Urea Nitrogen 9 mg/dL (9-23); Chloride 110 mmol/L (98-107); Potassium 3.3 mmol/L (3.5-5.1)
[2024-09-11] MEDS: FOLIC ACID 1 MG, MAGNESIUM SULF SDV 50% 8 MEQ, MULTIPLE VITAMIN 10 ML, THIAMINE INJ 100... INJ SCH (10:14)
[2024-09-11] MEDS: FOLIC ACID 1 MG, MAGNESIUM SULF SDV 50% 8 MEQ, MULTIPLE VITAMIN 10 ML, THIAMINE INJ 100... INJ ONE (10:20)
[2024-09-11 10:35] VITALS: PULSE 85; RESP 13; O2SAT 99
[2024-09-11] MEDS: POTASSIUM EFFERVESENT TAB 25 MEQ PO ONE (13:26)
[2024-09-11] MEDS: ONDANSETRON HCL 4 MG/2 ML VIAL IV ONE ×2 (15:05→20:28)
[2024-09-11] MEDS ORDERED: FOLIC ACID 1 MG, MAGNESIUM SULF SDV 50% 8 MEQ, MULTIPLE VITAMIN 10 ML, THIAMINE INJ 100... INJ SCH (18:00)
[2024-09-11] MEDS: PANTOPRAZOLE 40 MG TAB PO ONE (18:07)
[2024-09-11] MEDS: MAALOX PLUS or MAALOX 30 ML PO ONE (18:07)
[2024-09-11] MEDS: LIDOCAINE VISCOUS 2% 15ML UD PO ONE (18:07)
[2024-09-11] MEDS: DONNATAL 5ml ORAL Elix (BELLADONNA ALK-PHENOBARB) PO ONE (18:08)
[2024-09-11 19:39] VITALS: PULSE 99; RESP 25; O2SAT 98
[2024-09-11] MEDS: chlordiazePOXIDE HCL 25 MG CAP PO ONE ×2 (20:00→20:35)
--- NOTE | 2024-09-11 20:15 | DVHHP2 ---
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 She states she attempted to withdrawal from alcohol and she had tried to stopped drinking last couple of days. But she states that the symptoms were so bad where she was feeling really bad so she started to drink again she states she has been drinking about a pt of liquor daily. And he has been going on for a year now. She states she never went through an episode of withdrawal in that time. She always kept alcohol in her system. She states she has been drinking heavy because of her greater than four years ago her daughters 18 and he she was leaving her she has a lost her job she lost her home so it seems like social issues his was feeling her knee to drank. Patient states she did come here Friday but she left against medical advice. Did speak with the patient about feeling suicidal she states yes she has thoughts of suicide but she has not acting on it. Patient also states she had history of suicide attempt in the past when she was young. When evaluating patient's labs and imaging multivitamin was given Librium Zofran Protonix Ativan chest x-ray was unremarkable CBC was unremarkable BNP unremarkable. We will admit patient for acute alcohol withdrawal we will also place a sitter at bedside and ask for psych evaluation Past Medical History Anxiety and alcohol use Past Surgical History Family History Reviewed, non-contributory to the management of this case. Past Social History Patient does admit to drinking daily for the last year last drink was yesterday last night. Denies any drug use or smoking but does vape Review of Systems Constitutional: No: Fever, Chills, Sweats, Weakness, Malaise, Other Eyes: No: Pain, Vision change, Conjunctivae inflammation, Eyelid inflammation, Other, Redness ENT: No: Ear pain, Ear discharge, Nose pain, Nose discharge, Nose congestion, Mouth pain, Mouth swelling, Throat pain, Throat swelling, Other Respiratory: No: Cough, Dry, Shortness of breath, SOB with excertion, Wheezing, Hemoptysis, Pleuritic Pain, Sputum, Wheezing, Other Cardiovascular: No: Chest Pain, Palpitations, Orthopnea, Paroxysmal Noc. Dyspnea, Edema, Lt Headedness, Other Gastrointestinal: Nausea; No: Vomiting, Abdominal Pain, Diarrhea, Constipation, Melena, Hematochezia, Other Genitourinary: No Dysuria, No Frequency, No Incontinence, No Hematuria, No Retention, No Other Musculoskeletal: No: other, neck pain, shoulder pain, arm pain, back pain, hand pain, leg pain, foot pain Skin: No: Rash, Lesions, Jaundice, Bruising, Other Neurological: Other (Alcohol withdrawal); No: Weakness, Numbness, Incoordination, Change in speech, Confusion, Seizures Allergies: Coded Allergies: Codeine (Verified Allergy, Unknown, 10/10/21) NSAIDs (Verified Allergy, Unknown, 10/10/21) Medications Current Medications Medications Dose Ordered Sig/Javed Route Start Time Stop Time Status Last Admin Dose Admin Folic Acid 1 mg/ Magnesium Sulfate 8 meq/ Multivitamins 10 ml/Thiamine HCl 100 mg/Sodium Chloride 1,013.2 ml @ 250 mls/ hr DAILY@1800 INJ 09/12/24 18:00 Exam Vital Signs Vital Signs Date Time Temp Pulse Resp B/P (MAP) Pulse Ox O2 Delivery O2 Flow Rate FiO2 09/11/24 17:30 85 18 149/79 (102) 98 09/11/24 10:35 Room Air* 0 21 09/11/24 10:35 98.1 98.1 General Appearance: Alert, Oriented X3, Cooperative, No acute distress, Other (Anxious on exam and hallucinations) HEENT: Atraumatic, PERRLA, EOMI, Mucous membr. moist/pink Respiratory: Clear to auscultation, Normal air movement Cardiovascular: Regular rate, Normal S1, Normal S2, No murmurs Abdominal: Normal bowel sounds, Soft, No tenderness Extremities: No clubbing, No cyanosis, No edema, Normal pulses, No tender ness/swelling Skin: No rashes, No breakdown, No significant lesion Neuro: Other (Neuro nonfocal) Psych/Mental Status: Mental status NL, Mood NL Labs/Xrays Chest x-ray unremarkable I reviewed labs, imaging CT scan abdomen pelvis, EKG and all diagnostic studies on this patient from ED records and the medical chart Labs Test 09/11/24 08:52 Range/Units White Blood Count 6.2 4.4-10.8 10^3/uL Red Blood Count 4.12 4.0-5.20 10^6/uL Hemoglobin 9.7 L 12.2-16.2 g/dL Hematocrit 31.6 L 36.0-46.0 % Mean Corpuscular Volume 76.8 L 80.0-100.0 fL Mean Corpuscular Hemoglobin 23.6 L 28.0-32.0 pg Mean Corpuscular Hemoglobin Concent 30.7 L 32.0-36.0 g/dL Red Cell Distribution Width 19.0 H 11.8-14.3 % Platelet Count 277 140-450 10^3/uL Mean Platelet Volume 7.8 6.9-10.8 fL Neutrophils (%) (Auto) 79.4 37.0-80.0 % Lymphocytes (%) (Auto) 12.2 10.0-50.0 % Monocytes (%) (Auto) 7.5 0.0-12.0 % Eosinophils (%) (Auto) 0.7 0.0-7.0 % Basophils (%) (Auto) 0.2 0.0-2.0 % Neutrophils # (Auto) 4.9 1.6-8.6 10 ^3/uL Lymphocytes # (Auto) 0.8 0.4-5.4 10 ^3/uL Monocytes # (Auto) 0.5 0-1.3 10 ^3/uL Eosinophils # (Auto) 0 0-0.8 10 ^3/uL Basophils # (Auto) 0 0-0.2 10 ^3/uL Nucleated Red Blood Cells 0.0 % Sodium Level 143 136-145 mmol/L Potassium Level 3.3 L 3.5-5.1 mmol/L Chloride Level 110 H 98-107 mmol/L Carbon Dioxide Level 25 20-31 mmol/L Anion Gap 8 5-15 Blood Urea Nitrogen 9 9-23 mg/dL Creatinine 0.62 0.550-1.02 mg/dL Glomerular Filtration Rate Calc 116 >90 mL/min BUN/Creatinine Ratio 14.5 10.0-20.0 Serum Glucose 98 74-106 mg/dL Calcium Level 8.9 8.7-10.4 mg/dL Magnesium Level 1.9 1.6-2.6 mg/dL Total Bilirubin 0.5 0.2-1.0 mg/dL Aspartate Amino Transferase (AST) 18 13-40 U/L Alanine Aminotransferase (ALT) 14 7-40 U/L Alkaline Phosphatase 43 L 46-116 U/L Total Protein 6.5 5.7-8.2 g/dL Albumin 4.0 3.2-4.8 g/dL Lipase 40 12-53 U/L Plasma/Serum Blood Alcohol < 3.0 <10 mg/dL Assessment/Plan Assessment/Plan Acute metabolic encephalopathy related to alcohol intoxication acute etoh withdrawal and intoxication ordered Librium orderd Ativan as needed Seizure precautions ordered Librium monitor for etoh withdrawal ordered vit b 12 level ordered banana bag daily etoh level negative npo for now ordered zofran prn nausea ciwa protocol initiated acute SI with hallucinations with attempt in past when she was young ordered sitter at bedside for safety until seen by pyjaved monitor Acute dehydration Continue IV fluids 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
[2024-09-11] MEDS: LORazepam 2MG/ML-1ML VIAL IV SCH (20:45)
[2024-09-11] MEDS ORDERED: LORazepam 2MG/ML-1ML VIAL IV PRN (20:45)
[2024-09-11] MEDS ORDERED: NITROGLYCERIN 0.4 MG SL TAB SL PRN (20:45)
[2024-09-11] MEDS ORDERED: DOCUSATE SOD 100 MG CAP PO PRN (20:45)
[2024-09-11] MEDS: chlordiazePOXIDE HCL 25 MG CAP PO SCH (20:45)
[2024-09-11] MEDS ORDERED: MORPHINE SULFATE INJ 2 MG/ml SYRG IV PRN (20:45)
[2024-09-11 21:04] LABS: Urine Bacteria None Seen /hpf (None Seen)
[2024-09-11] MEDS: SODIUM CHLORIDE 0.9% 1,000 ML IV SCH (21:17)
[2024-09-11 21:50] LABS: Urine Blood 3+ /uL (Negative); Urine Clarity Turbid (Clear); Urine Color Light-Orange (Yellow); Urine Mucus FEW (None Seen); Urine Protein, UAD Negative (Negative); Urine Specific Gravity 1.021 (1.001-1.035); Urine Squamous Epithelial Cell FEW /hpf (<5); Urine Urobilinogen Normal (Negative); Urine WBC 4 /HPF (0-5); Urine pH 5.5 (5.0-9.0)
[2024-09-11 21:51] LABS: Amphetamine Screen, Urine Neg (NEGATIVE); Barbiturate Scree,Urine Neg (NEGATIVE); Benzodiazephine Screen, Urine Pos (NEGATIVE); Cannabinoid Screen, Urine Neg (NEGATIVE); Cocaine Screen, Urine Neg (NEGATIVE); Opiate Scree,Urine Pos (NEGATIVE); Phencyclidine Screen, Urine Neg (NEGATIVE)
[2024-09-12] VITALS (7 sets, daily range): BP systolic 119–133; BP diastolic 71–93; PULSE 90–120; RESP 16–20; TEMP 97.8–99.2; O2SAT 97–99
[2024-09-12 05:28] LABS: Basophils # (auto) 0 10 ^3/uL (0-0.2); Eosinophils # (auto) 0 10 ^3/uL (0-0.8)
[2024-09-12 05:30] LABS: Basophils % (auto) 0.4 % (0.0-2.0); Eosinophils % (auto) 0.5 % (0.0-7.0); Hematocrit 30.4 % (36.0-46.0); Hemoglobin 9.3 g/dL (12.2-16.2); Lymphocytes % (auto) 18.4 % (10.0-50.0); Mean Corpuscular Hemoglobin 23.9 pg (28.0-32.0); Mean Corpuscular Hgb Conc. 30.5 g/dL (32.0-36.0); Mean Corpuscular Volume 78.2 fL (80.0-100.0); Monocytes # (auto) 0.7 10 ^3/uL (0-1.3); Monocytes % (auto) 12.5 % (0.0-12.0); Neutrophils # (auto) 3.7 10 ^3/uL (1.6-8.6); Neutrophils % (auto) 68.2 % (37.0-80.0); Nucleated Red Blood Cells % 0.2 %; Platelet Count (auto) 251 10^3/uL (140-450); Red Blood Cells 3.89 10^6/uL (4.0-5.20); Red Cell Distribution Width 19.2 % (11.8-14.3); White Blood Cell 5.4 10^3/uL (4.4-10.8)
[2024-09-12 05:39] LABS: Alanine Aminotransferase 13 U/L (7-40); Albumin 3.6 g/dL (3.2-4.8); Anion Gap 9 (5-15); Carbon Dioxide 23 mmol/L (20-31); Glucose 94 mg/dL (74-106); Potassium 3.6 mmol/L (3.5-5.1); Sodium 143 mmol/L (136-145)
[2024-09-12 05:41] LABS: Aspartate Aminotransferase 29 U/L (13-40); Total Protein 5.7 g/dL (5.7-8.2)
[2024-09-12 05:43] LABS: Bilirubin, Total 0.3 mg/dL (0.2-1.0)
[2024-09-12 05:57] LABS: Alkaline Phosphatase 45 U/L (46-116); BUN/Creatinine Ratio 9.3 (10.0-20.0); Blood Urea Nitrogen < 5 mg/dL (9-23); Calcium 8.4 mg/dL (8.7-10.4); Chloride 111 mmol/L (98-107)
[2024-09-12] MEDS: chlordiazePOXIDE HCL 25 MG CAP PO SCH (10:00)
[2024-09-12] MEDS: ONDANSETRON HCL 4 MG/2 ML VIAL IV PRN (12:22)
[2024-09-12 13:28] LABS: Rapid Influenza A Negative (Negative); Rapid Influenza B Negative (Negative)
[2024-09-12 13:36] LABS: COVID19 ANTIGEN SOFIA FIA POSITIVE (NEGATIVE)
[2024-09-12] MEDS: HYDROcodone-ACET 5/325MG TAB PO PRN (14:06)
[2024-09-12] MEDS ORDERED: FOLIC ACID 1 MG, MAGNESIUM SULF SDV 50% 8 MEQ, MULTIPLE VITAMIN 10 ML, THIAMINE INJ 100... INJ SCH ×2 (18:00)
[2024-09-12] MEDS: FOLIC ACID 1 MG TAB PO ONE (18:54)
[2024-09-12] MEDS: THIAMINE HCL 100 MG TAB PO ONE (18:55)
[2024-09-12] MEDS: MULTIPLE VITAMIN TAB PO ONE (18:55)
--- NOTE | 2024-09-12 22:24 | DVHPN2 ---
OANH DIALLO DO 09/12/24 2224: Reviewed: Care Plan, H&P, Labs, Medications, Previous Orders, Radiology Changes from previous H/P or p: No Changes General: Per HPI Eyes: No Pain, No Vision change, No Conjunctivae inflammation, No Eyelid inflammation, No Other, No Redness ENT: No Ear pain, No Ear discharge, No Nose pain, No Nose discharge, No Nose congestion, No Mouth pain, No Mouth swelling, No Throat pain, No Throat swelling, No Other Cardiovascular: No Chest Pain, No Palpitations, No Orthopnea, No Paroxysmal Noc. Dyspnea, No Edema, No Lt Headedness, No Other Respiratory: No Cough, No Dry, No Shortness of breath, No SOB with excertion, No Wheezing, No Hemoptysis, No Pleuritic Pain, No Sputum, No Other Gastrointestinal: Nausea; No Vomiting, No Abdominal Pain, No Diarrhea, No Constipation, No Melena, No Hematochezia, No Other Genitourinary: No Dysuria, No Frequency, No Incontinence, No Hematuria, No Retention, No Other Musculoskeletal: No other, No neck pain, No shoulder pain, No arm pain, No back pain, No hand pain, No leg pain, No foot pain Skin: No Rash, No Lesions, No Jaundice, No Bruising, No Other Objective Vitals Vital Signs Date Time Temp Pulse Resp B/P (MAP) Pulse Ox O2 Delivery O2 Flow Rate FiO2 09/12/24 20:38 99.2 93 18 122/88 (99) 98 99.2 09/12/24 11:18 Room Air* 0 21 Intake/Output Intake and Output 09/12/24 07:00 Intake Total 1994 ml Balance 1994 ml IV Total 1994 ml Medications Current Medications Medications Dose Ordered Sig/Javed Route Start Time Stop Time Status Last Admin Dose Admin Chlordiazepoxide HCl 25 mg Q12HR PO 09/13/24 10:00 09/13/24 22:01 Chlordiazepoxide HCl 25 mg QAM PO 09/14/24 07:00 09/14/24 07:01 Sodium Chloride 1,000 ml @ 120 mls/hr Q8H20M IV 09/11/24 20:45 09/12/24 13:25 120 MLS/HR Ondansetron HCl 4 mg Q4HP PRN IV 09/11/24 20:45 09/12/24 20:41 4 MG Docusate Sodium 100 mg BIDPRN PRN PO 09/11/24 20:45 Morphine Sulfate 2 mg Q4HPRN PRN IV 09/11/24 20:45 Nitroglycerin 0.4 mg Q5MINP PRN SL 09/11/24 20:45 Lorazepam 1 mg Q6H IV 09/11/24 20:45 09/12/24 20:41 1 MG Lorazepam 1 mg Q2HPRN PRN IV 09/11/24 20:45 Acetaminophen/ Hydrocodone Bitart 1 tab Q6HPRN PRN PO 09/12/24 14:00 09/12/24 20:46 1 TAB Folic Acid 1 mg DAILY PO 09/13/24 10:00 Multivitamins 1 tab DAILY PO 09/13/24 10:00 Magnesium Oxide 400 mg DAILY PO 09/13/24 10:00 Thiamine HCl 100 mg DAILY PO 09/13/24 10:00 Laboratory Results Laboratory Tests 09/12/24 04:58 Chemistry Test 09/12/24 04:58 Albumin 3.6 g/dL (3.2-4.8) Calcium Level 8.4 mg/dL (8.7-10.4) L Total Protein 5.7 g/dL (5.7-8.2) LFT Test 09/12/24 04:58 Alanine Aminotransferase (ALT) 13 U/L (7-40) Alkaline Phosphatase 45 U/L (46-116) L Aspartate Amino Transferase (AST) 29 U/L (13-40) Total Bilirubin 0.3 mg/dL (0.2-1.0) Urinalysis Test 09/11/24 12:15 Urine Color Light-orange (Yellow) Urine Clarity Turbid (Clear) H Urine pH 5.5 (5.0-9.0) Urine Specific [place] 1.021 (1.001-1.035) Urine Protein Negative (Negative) Urine Ketones Negative (Negative) Urine Blood 3+ /uL (Negative) H Urine Nitrite 2+ (Negative) H Urine Bilirubin Negative (Negative) Urine Urobilinogen Normal mg/dL (Negative) Urine Leukocyte Esterase Negative /uL (Negative) Urine RBC 16 /hpf (0 - 4) Urine Microscopic WBC 4 /HPF (0-5) Urine Squamous Epithelial Cells Few /hpf (<5) Urine Bacteria None seen /hpf (None Seen) Urine Mucus Few (None Seen) Urine Glucose Normal mg/dL (Normal) Assessment/Plan My Orders Orders - OANH DIALLO DO Procedure Category Date Status Time Hydrocodone-Acet PHA 09/12/24 In Process 5/325mg Tab ([place] 14:00 MARTHA WELCH MD 09/13/242049: Subjective The patient seen and examined at bedside. No complains today. Reviewed: Care Plan, H&P, Labs, Medications, Previous Orders, Radiology Changes from previous H/P or p: No Changes Objective Vitals T 98.4, HR 90, RR 18, BP 115/75, 99% General Appearance: Alert, Oriented X3, Cooperative, No acute distress HEENT: Atraumatic, PERRLA, EOMI, Mucous membr. moist/pink Neck: Supple Lungs: Clear to auscultation, Normal air movement Cardiovascular: Regular rate, Normal S1, Normal S2, No murmurs, Gallops, Rubs Abdomen: Normal bowel sounds, Soft, No tenderness Neuro: Cranial nerves 3-12 NL Psych/Mental Status: Mental status NL Labs and/or images reviewed: Labs reviewed by me Assessment/Plan Assessment/Plan Acute metabolic encephalopathy related to alcohol intoxication acute etoh withdrawal and intoxication acute SI with hallucinations with attempt in past when she was young Acute dehydration acute EtOH abuse last night Plan: Continuing current management. Continuing with Librium, Ativan p.r.n., IV fluid, Folic acid and vitamin B1. Advised the patient to stop drinking. This medical document was created using an electronic medical record system with [employer] direct computerized dictation system. Although this document has been carefully reviewed, there may still be some phonetic and typographical errors. These areas are purely typographical due to imperfections of the software programs, and do not reflect any compromise in the patient's medical care. Plan discussed with: Patient Date of Service: Sep 13, 2024 Billing Provider: MARTHA WELCH MD Common Visit Codes: [id number] INP/OBS CARE(HIGH) OANH DIALLO DO Sep 12, 2024 22:24 MARTHA WELCH MD Sep 13, 2024 20:50
[2024-09-13] VITALS (9 sets, daily range): BP systolic 111–118; BP diastolic 68–79; PULSE 71–97; RESP 17–19; TEMP 98–99; O2SAT 99–100
[2024-09-13] MEDS: chlordiazePOXIDE HCL 25 MG CAP PO SCH (09:35)
[2024-09-13] MEDS: THIAMINE HCL 100 MG TAB PO SCH (09:35)
[2024-09-13] MEDS: MAGNESIUM OXIDE 400 MG TAB PO SCH (09:35)
[2024-09-13] MEDS: FOLIC ACID 1 MG TAB PO SCH (09:35)
[2024-09-13] MEDS: MULTIPLE VITAMIN TAB PO SCH (09:36)
--- NOTE | 2024-09-13 11:30 | DVHPN2 ---
Subjective The patient seen and examined at bedside. Very anxious. But not shake Reviewed: Care Plan, H&P, Labs, Medications, Previous Orders, Radiology Changes from previous H/P or p: No Changes General: Per HPI Eyes: No Pain, No Vision change, No Conjunctivae inflammation, No Eyelid inflammation, No Other, No Redness ENT: No Ear pain, No Ear discharge, No Nose pain, No Nose discharge, No Nose congestion, No Mouth pain, No Mouth swelling, No Throat pain, No Throat swelling, No Other Cardiovascular: No Chest Pain, No Palpitations, No Orthopnea, No Paroxysmal Noc. Dyspnea, No Edema, No Lt Headedness, No Other Respiratory: No Cough, No Dry, No Shortness of breath, No SOB with excertion, No Wheezing, No Hemoptysis, No Pleuritic Pain, No Sputum, No Other Gastrointestinal: Nausea; No Vomiting, No Abdominal Pain, No Diarrhea, No Constipation, No Melena, No Hematochezia, No Other Genitourinary: No Dysuria, No Frequency, No Incontinence, No Hematuria, No Retention, No Other Musculoskeletal: No other, No neck pain, No shoulder pain, No arm pain, No back pain, No hand pain, No leg pain, No foot pain Skin: No Rash, No Lesions, No Jaundice, No Bruising, No Other Objective Vitals Vital Signs Date Time Temp Pulse Resp B/P (MAP) Pulse Ox O2 Delivery O2 Flow Rate FiO2 09/13/24 09:00 98.0 71 18 118/79 (92) 100 98.0 09/12/24 20:00 Room Air* 0 21 Intake/Output Intake and Output 09/13/24 07:00 Intake Total 2470 ml Output Total 400 ml Balance 2070 ml Intake Oral 2110 ml IV Total 360 ml Output Urine Total 200 ml Emesis 200 ml # Voids 7 General Appearance: Alert, Cooperative, No acute distress HEENT: Atraumatic, PERRLA, EOMI, Mucous membr. moist/pink Neck: Supple Lungs: Clear to auscultation, Normal air movement Cardiovascular: Regular rate, Normal S1, Normal S2, No murmurs, Gallops, Rubs Abdomen: Normal bowel sounds, Soft, No tenderness Neuro: Cranial nerves 3-12 NL Psych/Mental Status: Mental status NL Medications Current Medications Medications Dose Ordered Sig/Javed Route Start Time Stop Time Status Last Admin Dose Admin Chlordiazepoxide HCl 25 mg Q12HR PO 09/13/24 10:00 09/13/24 22:01 09/13/24 09:35 25 MG Chlordiazepoxide HCl 25 mg QAM PO 09/14/24 07:00 09/14/24 07:01 Sodium Chloride 1,000 ml @ 120 mls/hr Q8H20M IV 09/11/24 20:45 09/13/24 06:20 120 MLS/HR Ondansetron HCl 4 mg Q4HP PRN IV 09/11/24 20:45 09/12/24 20:41 4 MG Docusate Sodium 100 mg BIDPRN PRN PO 09/11/24 20:45 Morphine Sulfate 2 mg Q4HPRN PRN IV 09/11/24 20:45 Nitroglycerin 0.4 mg Q5MINP PRN SL 09/11/24 20:45 Lorazepam 1 mg Q6H IV 09/11/24 20:45 09/13/24 08:46 1 MG Lorazepam 1 mg Q2HPRN PRN IV 09/11/24 20:45 Acetaminophen/ Hydrocodone Bitart 1 tab Q6HPRN PRN PO 09/12/24 14:00 09/13/24 10:55 1 TAB Folic Acid 1 mg DAILY PO 09/13/24 10:00 09/13/24 09:35 1 MG Multivitamins 1 tab DAILY PO 09/13/24 10:00 09/13/24 09:36 1 TAB Magnesium Oxide 400 mg DAILY PO 09/13/24 10:00 09/13/24 09:35 400 MG Thiamine HCl 100 mg DAILY PO 09/13/24 10:00 09/13/24 09:35 100 MG Laboratory Results Laboratory Tests 09/12/24 04:58 Urinalysis Test 09/11/24 12:15 Urine Color Light-orange (Yellow) Urine Clarity Turbid (Clear) H Urine pH 5.5 (5.0-9.0) Urine Specific [place] 1.021 (1.001-1.035) Urine Protein Negative (Negative) Urine Ketones Negative (Negative) Urine Blood 3+ /uL (Negative) H Urine Nitrite 2+ (Negative) H Urine Bilirubin Negative (Negative) Urine Urobilinogen Normal mg/dL (Negative) Urine Leukocyte Esterase Negative /uL (Negative) Urine RBC 16 /hpf (0 - 4) Urine Microscopic WBC 4 /HPF (0-5) Urine Squamous Epithelial Cells Few /hpf (<5) Urine Bacteria None seen /hpf (None Seen) Urine Mucus Few (None Seen) Urine Glucose Normal mg/dL (Normal) Labs and/or images reviewed: Labs reviewed by me Assessment/Plan Assessment/Plan Acute metabolic encephalopathy related to alcohol intoxication acute etoh withdrawal and intoxication acute suicidal ideation with hallucinations with attempt in past when she was young Acute dehydration EtOH abuse Anxiety Plan: Continuing current management. Continuing with IV fluid. Continuing with Librium, Ativan p.r.n. We will monitor her electrolytes. Advice to stop drinking more than 15 minutes This medical document was created using an electronic medical record system with [employer] computerized dictation system. Although this document has been carefully reviewed, there may still be some phonetic and typographical errors. These areas are purely typographical due to imperfections of the software programs, and do not reflect any compromise in the patient's medical care. Plan discussed with: Patient Date of Service: Sep 13, 2024 Billing Provider: MARTHA WELCH MD Common Visit Codes: [id number] INP/OBS CARE(HIGH) MARTHA WELCH MD Sep 13, 2024 11:30
[2024-09-14 05:00] VITALS: BP 108/76; PULSE 68; RESP 19; TEMP 97.7; O2SAT 96
[2024-09-14] MEDS: chlordiazePOXIDE HCL 25 MG CAP PO SCH (06:21)
[2024-09-14 08:15] VITALS: PULSE 77; RESP 18; O2SAT 100
[2024-09-14 08:35] VITALS: BP 121/67; PULSE 77; RESP 18; TEMP 97.9; O2SAT 100
--- NOTE | 2024-09-14 10:29 | DVHPN2 ---
Subjective The patient seen and examined at bedside. Very anxious.Also complains of severe body ache and want narcotic for the pain. Reviewed: Care Plan, H&P, Labs, Medications, Previous Orders, Radiology Changes from previous H/P or p: No Changes General: Per HPI Eyes: No Pain, No Vision change, No Conjunctivae inflammation, No Eyelid inflammation, No Other, No Redness ENT: No Ear pain, No Ear discharge, No Nose pain, No Nose discharge, No Nose congestion, No Mouth pain, No Mouth swelling, No Throat pain, No Throat swelling, No Other Cardiovascular: No Chest Pain, No Palpitations, No Orthopnea, No Paroxysmal Noc. Dyspnea, No Edema, No Lt Headedness, No Other Respiratory: No Cough, No Dry, No Shortness of breath, No SOB with excertion, No Wheezing, No Hemoptysis, No Pleuritic Pain, No Sputum, No Other Gastrointestinal: Nausea; No Vomiting, No Abdominal Pain, No Diarrhea, No Constipation, No Melena, No Hematochezia, No Other Genitourinary: No Dysuria, No Frequency, No Incontinence, No Hematuria, No Retention, No Other Musculoskeletal: No other, No neck pain, No shoulder pain, No arm pain, No back pain, No hand pain, No leg pain, No foot pain Skin: No Rash, No Lesions, No Jaundice, No Bruising, No Other Objective Vitals Vital Signs Date Time Temp Pulse Resp B/P (MAP) Pulse Ox O2 Delivery O2 Flow Rate FiO2 09/14/24 08:35 97.9 77 18 121/67 (85) 100 97.9 09/13/24 20:00 Room Air* 0 21 Intake/Output Intake and Output 09/14/24 07:00 Intake Total 1256 ml Balance 1256 ml Intake Oral 1256 ml # Voids 6 General Appearance: Alert, Cooperative, No acute distress HEENT: Atraumatic, PERRLA, EOMI, Mucous membr. moist/pink Neck: Supple Lungs: Clear to auscultation, Normal air movement Cardiovascular: Regular rate, Normal S1, Normal S2, No murmurs, Gallops, Rubs Abdomen: Normal bowel sounds, Soft, No tenderness Neuro: Cranial nerves 3-12 NL Psych/Mental Status: Mental status NL Medications Current Medications Medications Dose Ordered Sig/Javed Route Start Time Stop Time Status Last Admin Dose Admin Sodium Chloride 1,000 ml @ 120 mls/hr Q8H20M IV 09/11/24 20:45 09/14/24 07:05 120 MLS/HR Ondansetron HCl 4 mg Q4HP PRN IV 09/11/24 20:45 09/13/24 20:19 4 MG Docusate Sodium 100 mg BIDPRN PRN PO 09/11/24 20:45 Morphine Sulfate 2 mg Q4HPRN PRN IV 09/11/24 20:45 Nitroglycerin 0.4 mg Q5MINP PRN SL 09/11/24 20:45 Lorazepam 1 mg Q6H IV 09/11/24 20:45 09/14/24 09:25 1 MG Lorazepam 1 mg Q2HPRN PRN IV 09/11/24 20:45 Acetaminophen/ Hydrocodone Bitart 1 tab Q6HPRN PRN PO 09/12/24 14:00 09/14/24 08:21 1 TAB Folic Acid 1 mg DAILY PO 09/13/24 10:00 09/14/24 09:25 1 MG Multivitamins 1 tab DAILY PO 09/13/24 10:00 09/14/24 09:25 1 TAB Magnesium Oxide 400 mg DAILY PO 09/13/24 10:00 09/14/24 09:25 400 MG Thiamine HCl 100 mg DAILY PO 09/13/24 10:00 09/14/24 09:25 100 MG Laboratory Results Laboratory Tests 09/12/24 04:58 Urinalysis Test 09/11/24 12:15 Urine Color Light-orange (Yellow) Urine Clarity Turbid (Clear) H Urine pH 5.5 (5.0-9.0) Urine Specific [place] 1.021 (1.001-1.035) Urine Protein Negative (Negative) Urine Ketones Negative (Negative) Urine Blood 3+ /uL (Negative) H Urine Nitrite 2+ (Negative) H Urine Bilirubin Negative (Negative) Urine Urobilinogen Normal mg/dL (Negative) Urine Leukocyte Esterase Negative /uL (Negative) Urine RBC 16 /hpf (0 - 4) Urine Microscopic WBC 4 /HPF (0-5) Urine Squamous Epithelial Cells Few /hpf (<5) Urine Bacteria None seen /hpf (None Seen) Urine Mucus Few (None Seen) Urine Glucose Normal mg/dL (Normal) Labs and/or images reviewed: Labs reviewed by me Assessment/Plan Assessment/Plan Acute metabolic encephalopathy related to alcohol intoxication acute etoh withdrawal and intoxication acute suicidal ideation with hallucinations with attempt in past when she was young Acute dehydration EtOH abuse Anxiety Covid 19 infection. Plan: Continuing current management. Continuing with IV fluid. Continuing with Librium, Ativan p.r.n. We will monitor her electrolytes. Advice to stop drinking more than 15 minutes I explains to patient her myalgia is due to covid 19 infection. I would not advise her to take norco for pain. Tylenol will help her. This medical document was created using an electronic medical record system with [employer] dictation system. Although this document has been carefully reviewed, there may still be some phonetic and typographical errors. These areas are purely typographical due to imperfections of the software programs, and do not reflect any compromise in the patient's medical care. Plan discussed with: Patient, Other (sister) Date of Service: Sep 14, 2024 Billing Provider: MARTHA WELCH MD Common Visit Codes: [id number] INP/OBS CARE(HIGH) MARTHA WELCH MD Sep 14, 2024 10:28
[2024-09-14] MEDS ORDERED: chlordiazePOXIDE HCL 25 MG CAP PO PRN (11:15)
[2024-09-14 13:00] VITALS: BP 115/64; PULSE 64; RESP 18; TEMP 97.9; O2SAT 98
[2024-09-14 17:00] VITALS: BP 110/71; PULSE 69; RESP 18; TEMP 98.9; O2SAT 98
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
[2024-09-14 21:00] VITALS: BP 106/75; PULSE 69; RESP 20; TEMP 97.3; O2SAT 99
[2024-09-15 01:00] VITALS: BP 102/64; PULSE 78; RESP 20; TEMP 97.5; O2SAT 99
[2024-09-15 05:00] VITALS: BP 103/54; PULSE 60; RESP 20; TEMP 98.1; O2SAT 99
[2024-09-15 07:50] VITALS: PULSE 85; RESP 17; O2SAT 98
[2024-09-15] MEDS ORDERED: LORA-655 PO (11:30)
--- NOTE | 2024-09-15 11:32 | DVHDS2 ---
Discharge Summary Date of Admission Sep 11, 2024 at 20:34 Date of Discharge: Sep 15, 2024 Admitting Diagnosis Acute metabolic encephalopathy related to alcohol intoxication acute etoh withdrawal and intoxication acute suicidal ideation with hallucinations with attempt in past when she was young Acute dehydration EtOH abuse Anxiety Covid 19 infection. Labs/Diagnostic Data: Laboratory Results Test 09/13/24 06:04 09/12/24 12:43 09/12/24 04:58 09/11/24 21:42 POC Glucose 96 mg/dl (70-106) Influenza Type A Antigen Negative (Negative) Influenza Type B Antigen Negative (Negative) SARS-CoV-2 Antigen (Rapid) Positive (NEGATIVE) White Blood Count 5.4 10^3/uL (4.4-10.8) Red Blood Count 3.89 10^6/uL (4.0-5.20) Hemoglobin 9.3 g/dL (12.2-16.2) Hematocrit 30.4 % (36.0-46.0) Mean Corpuscular Volume 78.2 fL (80.0-100.0) Mean Corpuscular Hemoglobin 23.9 pg (28.0-32.0) Mean Corpuscular Hemoglobin Concent 30.5 g/dL (32.0-36.0) Red Cell Distribution Width 19.2 % (11.8-14.3) Platelet Count 251 10^3/uL (140-450) Mean Platelet Volume 8.3 fL (6.9-10.8) Neutrophils (%) (Auto) 68.2 % (37.0-80.0) Lymphocytes (%) (Auto) 18.4 % (10.0-50.0) Monocytes (%) (Auto) 12.5 % (0.0-12.0) Eosinophils (%) (Auto) 0.5 % (0.0-7.0) Basophils (%) (Auto) 0.4 % (0.0-2.0) Neutrophils # (Auto) 3.7 10 ^3/uL (1.6-8.6) Lymphocytes # (Auto) 1.0 10 ^3/uL (0.4-5.4) Monocytes # (Auto) 0.7 10 ^3/uL (0-1.3) Eosinophils # (Auto) 0 10 ^3/uL (0-0.8) Basophils # (Auto) 0 10 ^3/uL (0-0.2) Nucleated Red Blood Cells 0.2 % Sodium Level 143 mmol/L (136-145) Potassium Level 3.6 mmol/L (3.5-5.1) Chloride Level 111 mmol/L (98-107) Carbon Dioxide Level 23 mmol/L (20-31) Anion Gap 9 (5-15) Blood Urea Nitrogen < 5 mg/dL (9-23) Creatinine 0.54 mg/dL (0.550-1.02) Glomerular Filtration Rate Calc 120 mL/min (>90) BUN/Creatinine Ratio 9.3 (10.0-20.0) Serum Glucose 94 mg/dL (74-106) Calcium Level 8.4 mg/dL (8.7-10.4) Total Bilirubin 0.3 mg/dL (0.2-1.0) Aspartate Amino Transferase (AST) 29 U/L (13-40) Alanine Aminotransferase (ALT) 13 U/L (7-40) Alkaline Phosphatase 45 U/L (46-116) Total Protein 5.7 g/dL (5.7-8.2) Albumin 3.6 g/dL (3.2-4.8) Magnesium Level 2.2 mg/dL (1.6-2.6) Test 09/11/24 12:15 09/11/24 08:52 Urine Color Light-orange (Yellow) Urine Clarity Turbid (Clear) Urine pH 5.5 (5.0-9.0) Urine Specific [place] 1.021 (1.001-1.035) Urine Protein Negative (Negative) Urine Ketones Negative (Negative) Urine Blood 3+ /uL (Negative) Urine Nitrite 2+ (Negative) Urine Bilirubin Negative (Negative) Urine Urobilinogen Normal mg/dL (Negative) Urine Leukocyte Esterase Negative /uL (Negative) Urine RBC 16 /hpf (0 - 4) Urine Microscopic WBC 4 /HPF (0-5) Urine Squamous Epithelial Cells Few /hpf (<5) Urine Bacteria None seen /hpf (None Seen) Urine Mucus Few (None Seen) Urine Glucose Normal mg/dL (Normal) Urine Opiates Screen Pos (NEGATIVE) Urine Fentanyl Screen Neg (NEGATIVE) Urine Barbiturates Screen Neg (NEGATIVE) Urine Phencyclidine Screen Neg (NEGATIVE) Urine Amphetamines Screen Neg (NEGATIVE) Urine Benzodiazepines Screen Pos (NEGATIVE) Urine Cocaine Screen Neg (NEGATIVE) Urine Cannabinoids Screen Neg (NEGATIVE) Lipase 40 U/L (12-53) Plasma/Serum Blood Alcohol < 3.0 mg/dL (<10) Other Laboratory Tests 09/12/24 04:58 Brief Hx & Hospital Course: This is a 39 years old female with past medical history of alcohol abuse, come in because of alcohol withdrawal, anxiety, and suicidal ideation. Patient stated that she be drinking about a pint of liquor daily. She always kept alcohol in her system. She states she had been drinking heavily lately because her four years ago and her daughter leaving her when she was 18. The patient lost her job in her home so she had been drinking nonstop. The patient was admitted. The patient stated that she had a suicide attempt when she was younger but now just had some idea about how to kill herself. The patient denied any plan of killing herself or harm anybody else. Tele Psychiatrist was consulted. Recommend clearance for discharge and recommended outpatient rehab. The patient complained of achiness from COVID-19 infection. The patient however does not have any decrease in saturation oxygen. Her oxygen was above 92%. The patient was found to have sore throat and had greenish sputum so I am going to discharge her with Augmentin 875/1251 tablet every 12 hours for 10 days. Advised her to follow up with her primary care physician and enrolled into a alcohol rehab as outpatient. Activity as tolerated. Diet per home diet. Follow up with primary care physician 1-2 weeks. Physical exam: HEENT: Normocephalic atraumatic pupils equal react to light and accommodation. Extraocular muscles intact, conjunctiva pink, oropharynx moist, no thrush, no exudate. Lymphatic: No lymphadenopathy Cardiovascular exam: S1, S2 was heard. No murmurs, rubs, gallops Lung: Clear on auscultation bilaterally, no wheeze, rale, rhonchi. GI: Abdominal soft, nondistended, nontenderness, positive bowel sounds. Extremity: No crepitus, cyanosis, edema. Pedal pulses present bilateral. Full range of motion. Skin: Normal turgor, no rash. Psych: Alert, oriented x3. Neurology: No focal deficits, cranial nerve II to XII grossly intact. This medical document was created using an electronic medical record system with [employer] direct computerized dictation system. Although this document has been carefully reviewed, there may still be some phonetic and typographical errors. These areas are purely typographical due to imperfections of the software programs, and do not reflect any compromise in the patient's medical care. Condition at Discharge: Stable Final Diagnosis/Problems List Acute metabolic encephalopathy related to alcohol intoxication acute etoh withdrawal and intoxication acute suicidal ideation with hallucinations with attempt in past when she was young Acute dehydration EtOH abuse Anxiety Covid 19 infection. Discharge Disposition: Home Discharge Instruct/Medications Diet: Regular Activity: No Restrictions, As Tolerated Follow Up/Referral: pcp 1-2 weeks Medications: ativan 0.5mg PO q8 hour prn for anxiety Augmentin 875/125 one tab bid Discharge Statement: "Patient was advised to return to the ER or call 911 if any headaches, dizziness, shortness of breath, chest pain, abdominal pain, bleeding, fevers, or worsening of medical condition. Patient was counseled about treatment plan, medications, possible side effects, patientverbalized understanding. All questions were answered to the best of my ability. This discharge took greater then 30 minutes in planning, reviewing documentation, counseling the patient, and discussing with other team members." ASSESSMENT ASSESSMENT Assessment covid 19 alcohol withdrawal Date of Service: Sep 15, 2024 Billing Provider: MARTHA WELCH MD Common Visit Codes: 33859-MWP/OBS DISCH DAY >30min MARTHA WELCH MD Sep 15, 2024 11:32
[2024-09-15] MEDS ORDERED: AMOX500C2 PO (12:09)
[2024-09-15 13:01] VITALS: BP 111/69; PULSE 67; RESP 16; TEMP 97.9; O2SAT 97
== END 2024-09-15 14:00 | disposition home or self-care (01) | DRG 816 ==
LOC: ER 07:07 → OVERFLOW 20:34 → CENTRAL 20:43 → WEST WING 09-12 09:40 → CENTRAL 09-12 14:34
PROVIDERS: ADMIT Internal Medicine; ATTEND Internal Medicine
DX: T51.0X1A Toxic effect of ethanol, accidental (unintentional), initial encounter (principal); U07.1 COVID-19; G93.41 Metabolic encephalopathy; G31.2 Degeneration of nervous system due to alcohol; R45.851 Suicidal ideations; E86.0 Dehydration; E87.6 Hypokalemia; F10.129 Alcohol abuse with intoxication, unspecified; F10.139 Alcohol abuse with withdrawal, unspecified; Y90.9 Presence of alcohol in blood, level not specified; F41.9 Anxiety disorder, unspecified; E78.00 Pure hypercholesterolemia, unspecified; I10 Essential (primary) hypertension; E11.9 Type 2 diabetes mellitus without complications; F20.9 Schizophrenia, unspecified; F32.A Depression, unspecified; Z53.29 Procedure and treatment not carried out because of patient's decision for other reasons; F84.0 Autistic disorder; Z98.891 History of uterine scar from previous surgery; Z56.0 Unemployment, unspecified; Z88.5 Allergy status to narcotic agent; Z91.51 Personal history of suicidal behavior; Y90.0 Blood alcohol level of less than 20 mg/100 ml
CPT/HCPCS: 36415; 71046; 80053; 80307; 80320; 81001; 82962; 83690; 83735; 85025; 87426; 87804; 96361; 96365; 96375; 96376; G0378; J2405